=== PATIENT | male | born 1950 | race Caucasian/White ===

== ENCOUNTER 2017-05-01 11:48 | Emergency (ER) | payer MEDICARE, OTHER ==
[2017-05-01 11:57] VITALS: BP 130/90
--- NOTE | 2017-05-01 12:29 | UC ---
Laceration HPI - HPI Summary HPI Summary: This is a 67 yo male with CAD who presented with c/o head laceration that he sustained earlier this morning. An aluminum ladder fell on to his head. He did not fall or lose consciousness. Denies HOWARD, confusion, numbness, weakness, nausea or vomiting. - History Of Current Complaint Chief Complaint: UCLaceration Stated Complaint: HEAD LACERATION - Allergies/Home Medications Allergies/Adverse Reactions: Allergies Allergy/AdvReac Type Severity Reaction Status Date / Time Cefazolin [From Anc] Allergy Severe Blisters Verified 05/01/17 11:57 Home Medications: Home Medications Lisinopril [Lisinopril 40 MG-] 40 mg PO DAILY 05/01/17 [History] PMH/Surg Hx/FS Hx/Imm Hx Cardiovascular History: Cardiac Disease - Surgical History Surgical History: Yes Surgery Procedure, Year, and Place: pacer, cardiac stents, right total hip replacement, fractured odontoid process repair, resurfacing of left shoulder, calcium deposit removed from left shoulder - Family History Known Family History: Positive: Cardiac Disease, Other - gout - Social History Alcohol Use: Rare Substance Use Type: None Smoking Status (MU): Never Smoked Tobacco Review of Systems Constitutional: Negative Skin: Other - laceration Eyes: Negative ENT: Negative Respiratory: Negative Cardiovascular: Negative Gastrointestinal: Negative Genitourinary: Negative Motor: Negative Neurovascular: Negative Musculoskeletal: Negative Neurological: Negative Psychological: Negative All Other Systems Reviewed And Are Negative: Yes Physical Exam Triage Information Reviewed: Yes Appearance: Well-Appearing Vital Signs: Initial Vital Signs Temp 97.6 F 05/01/17 11:53 Pulse 84 05/01/17 11:53 Resp 18 05/01/17 11:53 BP 130/90 05/01/17 11:53 Pulse Ox 98 05/01/17 11:53 Vital Signs Reviewed: Yes Neck: Positive: Nontender, No Lymphadenopathy Respiratory: Positive: Chest non-tender, Lungs clear. Negative: Crackles, Rhonchi, Stridor, Wheezing Cardiovascular: Positive: RRR, No Murmur Skin: Positive: Other - linear laceration near the superior portion of the parietal-occiptal suture, bleeding controlled Laceration Repair - Laceration Repair 1 Description: Linear Laceration Size After Repair: Length (cm) - 5 Modified For Repair: No Cleansing Completed Via Routine Prep: Yes Closure Material: SteriStrips Closure Method: Single Layer Laceration Course/Dx - Course/Dx Course Of Treatment: This is a 67 yo male who sustained a laceration to his head without evidence of intracranial injury. Site was cleaned and closed with steristrips. Pt advised to monitor for signs of infection - Differential Dx - Laceration/Wound Differental Diagnoses: Fracture, Hematoma, Laceration Provider Diagnoses: 1. Laceration - head Discharge - Discharge Plan Condition: Stable Disposition: HOME Patient Education Materials: Laceration (ED), Steristrips (ED) Referrals: Gracie Mahoney MD [Primary Care Provider] - If Needed Additional Instructions: Activity: No restrictions Instructions: 1. Monitor for signs of infection
== END 2017-05-01 12:42 | disposition home or self-care (01) ==
LOC: UCCORT 11:48
DX: S01.91XA Laceration without foreign body of unspecified part of head, initial encounter (principal); W20.8XXA Other cause of strike by thrown, projected or falling object, initial encounter; Y93.9 Activity, unspecified; Y92.9 Unspecified place or not applicable; I51.9 Heart disease, unspecified; Z88.1 Allergy status to other antibiotic agents
CPT/HCPCS: 99211; G0463

== ENCOUNTER 2017-10-15 10:52 | Day surgery (SDC) | payer MEDICARE, OTHER ==
[~2017-10-15 10:52] MED LIST: Acetaminophen TAB* 325 MG PO PRN; Buffered Lidocaine 0.9% SYRIN* 5 ML/SYR SYRINGE INTRADERM ONE
[2017-10-15] MEDS ORDERED: Midazolam* 1 MG/ML 2 ML VIAL (2 MG) ONE (12:07)
[2017-10-15 13:33] VITALS: BP 142/99
[2017-10-16] MEDS ORDERED: Cyclopentolate 1% OPTH.SOL* 2 ML BTL ONE (07:30)
[2017-10-16] MEDS ORDERED: Ketorolac 0.5% OPHTH (NF) 0.5 % 5 ML BTL ONE (07:30)
[2017-10-16] MEDS ORDERED: Phenylephrine 2.5% OPTH.SOL* 2 ML BTL ONE (07:30)
[2017-10-16] MEDS ORDERED: Lidocaine 1% MPF* 2 ML VIAL ONE (07:30)
[2017-10-16] MEDS ORDERED: Neomycin/Polymy/Dex OPHTH.OIN* 3.5 GM ONE (07:30)
[2017-10-16] MEDS ORDERED: acetaZOLAMIDE TAB* 250 MG ONE (07:30)
[2017-10-16] MEDS ORDERED: Tetracaine 0.5% OPTH.SOL 4 ML* 1 DROP BTL ONE (07:30)
[2017-10-16] MEDS ORDERED: Povidone Iodine 5% OPTH* 30 ML BTL ONE (07:30)
[2017-10-16] MEDS ORDERED: Tropicamide 1% OPTH.SOL* BTL ONE (07:30)
--- NOTE | 2017-10-16 11:41 | OP ---
DATE OF OPERATION: 10/15/17 - [facility] DATE OF : 52 SURGEON: Juan Pablo Vickers MD ANESTHESIA: Monitored anesthesia care. PRE-OP DIAGNOSIS: Cataract, right eye. POST-OP DIAGNOSIS: Cataract, right eye. OPERATIVE PROCEDURE: Extracapsular cataract extraction of the right eye with intraocular lens implant. IMPLANTS: SN60WF 28.5 diopter lens to the right eye. COMPLICATIONS: None. DESCRIPTION OF PROCEDURE: The patient was given phenylephrine 2.5% and cyclopentolate 1% eye drops to the operative eye in the preoperative area. The patient was brought to the operating room where a time-out was taken to identify the correct patient, site, and side of surgery. The patient's right eye was prepped and draped in the usual sterile fashion with 5% Betadine. A second time- out was taken to verify the correct patient, site, and side of surgery, and correct lens selection. A lid speculum was placed to the right eye. A 1-mm paracentesis blade was used to make a clear corneal incision in the superotemporal position. Preservative free 1% lidocaine was injected into the anterior chamber. DisCoVisc was then injected into the anterior chamber. A 2.75 mm keratome blade was used to make a triplanar incision at the inferotemporal position. A cystotome initiated a capsulorrhexis, which was completed with Utrata forceps in a continuous and curvilinear manner. Hydrodissection of the lens was performed with BSS on a cannula. The lens could be spun in a capsular bag. The phacoemulsification handpiece was used with a divide and conquer technique to remove to nucleus in its entirety with 9.71 CDE. The I/A handpiece was then removed the residual cortical lens material. DisCoVisc was injected to inflate the capsular bag. The planned SN60WF 28.5 diopter lens was injected into the capsular bag. The residual DisCoVisc was removed from the eye with a I/A handpiece. The corneal incisions were hydrated and no leaks occurred at physiologic pressure around 20 mmHg per palpation. The lid speculum was removed and drapes removed. Maxitrol ointment was placed to the surface of the operative eye. An adhesive patch and shield was then placed on the operative eye. The patient was taken to the postoperative area in stable condition. [id number]/[facility] #: [id number] MTDD
== END 2017-10-15 13:43 | disposition home or self-care (01) ==
LOC: OREAST 10:52
PROVIDERS: ATTEND Student in an Organized Health Care Education/Training Program
DX: H25.11 Age-related nuclear cataract, right eye (principal); H04.123 Dry eye syndrome of bilateral lacrimal glands; Z95.5 Presence of coronary angioplasty implant and graft; E78.00 Pure hypercholesterolemia, unspecified; K21.9 Gastro-esophageal reflux disease without esophagitis; I49.9 Cardiac arrhythmia, unspecified; Z95.0 Presence of cardiac pacemaker; I25.10 Atherosclerotic heart disease of native coronary artery without angina pectoris; Z79.01 Long term (current) use of anticoagulants; D64.9 Anemia, unspecified; G47.33 Obstructive sleep apnea (adult) (pediatric)
CPT/HCPCS: A9270-GY; J2250; V2632

== ENCOUNTER 2017-10-22 10:49 | Day surgery (SDC) | payer MEDICARE, OTHER ==
[~2017-10-22 10:49] MED LIST changes: +Cyclopentolate 1% OPTH.SOL* 2 ML BTL ONE; +Ketorolac 0.5% OPHTH (NF) 0.5 % 5 ML BTL ONE; +Lidocaine 1% MPF* 2 ML VIAL ONE; +Neomycin/Polymy/Dex OPHTH.OIN* 3.5 GM ONE; +Phenylephrine 2.5% OPTH.SOL* 2 ML BTL ONE; +Povidone Iodine 5% OPTH* 30 ML BTL ONE; +Tetracaine 0.5% OPTH.SOL 4 ML* 1 DROP BTL ONE; +Tropicamide 1% OPTH.SOL* BTL ONE; +acetaZOLAMIDE TAB* 250 MG ONE
[2017-10-22] MEDS ORDERED: Midazolam* 1 MG/ML 2 ML VIAL (2 MG) ONE (12:14)
[2017-10-22 13:02] VITALS: BP 138/92
--- NOTE | 2017-10-23 04:28 | OP ---
DATE OF OPERATION: 10/22/17 - [facility] DATE OF : 52 SURGEON: Juan Pablo Vickers MD ANESTHESIA: Monitored anesthesia care. PRE-OP DIAGNOSIS: Cataract, left eye. POST-OP DIAGNOSIS: Cataract, left eye. OPERATIVE PROCEDURE: Extracapsular cataract extraction of the left eye with intraocular lens implant. IMPLANTS: SN60WF 30.0 diopter lens to left eye. COMPLICATIONS: None. DESCRIPTION OF PROCEDURE: The patient was given phenylephrine 2.5% and cyclopentolate 1% eye drops to the operative eye in the preoperative area. The patient was brought to the operating room, where a time-out was taken to identify the correct patient, site, and side of surgery. The patient's left eye was prepped and draped in the usual sterile fashion with 5% Betadine. A second time-out was taken to verify the correct patient, site, and side of surgery, and correct lens selection. A lid speculum was placed to the left eye. A 1-mm paracentesis blade was used to make a clear corneal incision in the inferotemporal position. Preservative-free 1% lidocaine was injected into the anterior chamber. DisCoVisc was then injected into the anterior chamber. A 2.75-mm keratome blade was used to make a triplanar incision at the superotemporal position. A cystotome initiated a capsulorrhexis, which was completed with Utrata forceps in a continuous and curvilineal manner. Hydrodissection of the lens was performed with BSS on a cannula. The lens could be spun in the capsular bag. The phacoemulsification handpiece was used with a [id number] technique to remove the nucleus in its entirety with 9.56 CDE. The I/A handpiece then removed the residual cortical lens material. DisCoVisc was injected to inflate the capsular bag. The planned SN60WF 30.0 diopter lens was injected into the capsular bag. The residual DisCoVisc was removed from the eye with the I/A handpiece. The corneal incisions were hydrated and no leaks occurred at physiologic pressure around 20 mmHg per palpation. The lid speculum was removed and drapes removed. Maxitrol ointment was placed to the surface of the operative eye. An adhesive patch and shield was then placed on the operative eye. The patient was taken to the postoperative area in stable condition. [id number]/[facility] #: [id number] ANTONELLA
== END 2017-10-22 13:08 | disposition home or self-care (01) ==
LOC: OREAST 10:49
PROVIDERS: ATTEND Student in an Organized Health Care Education/Training Program
DX: H25.12 Age-related nuclear cataract, left eye (principal); H04.123 Dry eye syndrome of bilateral lacrimal glands; I25.10 Atherosclerotic heart disease of native coronary artery without angina pectoris; Z95.5 Presence of coronary angioplasty implant and graft; Z95.0 Presence of cardiac pacemaker; E78.00 Pure hypercholesterolemia, unspecified; Z79.01 Long term (current) use of anticoagulants; K21.9 Gastro-esophageal reflux disease without esophagitis; I10 Essential (primary) hypertension; I44.1 Atrioventricular block, second degree; D64.9 Anemia, unspecified; G47.33 Obstructive sleep apnea (adult) (pediatric)
CPT/HCPCS: A9270-GY; J2250; V2632